=== PATIENT | female | born 1945 | race Caucasian/White ===

== ENCOUNTER → 2016-03-15 | Outpatient (CLI) | payer OTHER ==
[~2016-03-15] VITALS: Ht 160 cm; Wt 110.0 kg
[~2016-03-15] MED LIST: ASPIRIN81 M2 PO; CALCIUM500 M4 PO; CARDIZEM120 MG PO; ELIQUIS5 MG PO; Halfprin PO; LASIX40 MG PO; LEVOTHROID112 MCG PO; LEVOTHYROXINE112 MCG PO; LOPRESSOR25 MG PO; Lopressor PO; MATZIM LA240 MG PO; OSTERA; OSTERA TABLET1 EACH PO; Tums,OsCal PO; VITAMIN D-32000 UNI2 PO; VITAMIN D250000 UNIT PO; WOMEN'S MULTI200 MCG PO
[2016-03-15 11:58] LABS: HEMATOCRIT 32.5 % (36.0-46.0); MCV 90.8 FL (83-99)
== END | disposition home or self-care (01) ==
LOC: AMB 11:16
PROVIDERS: Anesthesiology
PROC: 0DJD8ZZ Inspection of Lower Intestinal Tract, Via Natural or Artificial Opening Endoscopic (ICD-10-PCS; principal; 2016-03-15)
DX: K64.2 Third degree hemorrhoids (principal); K92.1 Melena; D64.9 Anemia, unspecified; Z79.01 Long term (current) use of anticoagulants; I48.0 Paroxysmal atrial fibrillation; E03.9 Hypothyroidism, unspecified; G47.30 Sleep apnea, unspecified; I10 Essential (primary) hypertension; R01.1 Cardiac murmur, unspecified; Z95.0 Presence of cardiac pacemaker; Z91.09 Other allergy status, other than to drugs and biological substances; Z88.7 Allergy status to serum and vaccine; Z88.8 Allergy status to other drugs, medicaments and biological substances; Z88.1 Allergy status to other antibiotic agents
CPT/HCPCS: 85014; 85018; B4087; J2250